=== PATIENT | male | born 2000 | race Caucasian/White ===

== ENCOUNTER 2022-07-15 12:34 | Emergency (ER) | payer OTHER | END 2022-07-15 14:08 | disposition home or self-care (01) | LOC: MADERS 12:34 | DX: S93.402A Sprain of unspecified ligament of left ankle, initial encounter (principal); F17.290 Nicotine dependence, other tobacco product, uncomplicated; X50.1XXA Overexertion from prolonged static or awkward postures, initial encounter ==